=== PATIENT | male | born 1975 | race Hispanic/Latino ===

== ENCOUNTER 2020-12-05 10:08 | Emergency (ER) | payer OTHER, SELFPAY ==
[2020-12-05 10:21] VITALS: BP 129/59; PULSE 73; RESP 14; TEMP 36.8; O2SAT 98
--- NOTE | 2020-12-05 10:46 | DI.RAD.S_ITS ---
PROCEDURE: XR KNEE RT 3V INDICATIONS: knee pain after being kicked by cow TECHNIQUE: 3 views of the knee were acquired. COMPARISON: None. FINDINGS: Bones: No fractures or dislocations. No suspicious bony lesions. Soft tissues: No joint effusion. No suspicious soft tissue calcifications. IMPRESSION: No fracture. No osseous lesion. If symptoms and/or clinical suspicion for pathology persists, further assessment with repeat radiographs (7-10 days) or advanced imaging (e.g. CT, MRI or bone scan) should be considered. Dictated by: Tata Miller MD, PhD on 12/05/2020 at 11:14 Approved by: Tata Miller MD, PhD on 12/05/2020 at 11:15
--- NOTE | 2020-12-05 10:53 | ED.LOWEXIN ---
HPI - Extremity Injury (Lower) <MALIA Demarco-BC - Last Filed: 12/05/20 13:18> General Chief Complaint: Extremity Injury, Upper Stated Complaint: Rt Knee Pain Time Seen by Provider: 12/05/20 10:18 Source: patient Mode of arrival: Ambulatory Limitations: language barrier History of Present Illness HPI Narrative: The patient is a 45-year-old male current some day smoker who denies pertinent medical history who presents with a chief complaint of right knee pain. He states that he was kicked by a cow yesterday on the lateral aspect of his right knee. The cow kicked him and he felt sudden pain on the medial aspect of his right knee. He states that that point he had all of his weight on his right leg as his left leg was up on a fence. He complains of pain, instability, is concerned about possible fracture. He has used ibuprofen and is walking with the assist of a crutch. The patient is [place]ian-speaking, does understand some Icelandic, does present with a friend for translation. He was offered use of an official cooling pan tender, but declines as he would rather use his friend for interpretation. He denies any previous injuries to his knee. Related Data Previous Rx's Medication Instructions Recorded ketorolac 10 mg PO TID PRN #14 tab 12/05/20 lidocaine 1 patch TOPICAL DAILY PRN #15 ea 12/05/20 Allergies Allergy/AdvReac Type Severity Reaction Status Date / Time No Known Drug Allergies Allergy Verified 12/05/20 10:29 Review of Systems <EARLENE Demarco - Last Filed: 12/05/20 13:18> Review of Systems Narrative: GENERAL: Denies chills, fatigue, malaise, fever, sweats. HEENT: Denies sinus pain, ear pain, sore throat, difficulty swallowing, dizziness. RESPIRATORY: Denies dyspnea, cough, wheezing, hemoptysis, sputum. CARDIOVASCULAR: Denies chest pain, palpitations, orthopnea, edema, GASTROINTESTINAL: Denies nausea, vomiting, abdominal pain, diarrhea, constipation, melena. : Denies dysuria, frequency, incontinence, hematuria, urinary retention. MUSCULOSKELETAL: See HPI SKIN: Denies rash, skin lesions, or other NEUROLOGIC: Denies weakness, headache, numbness, change in speech, confusion, seizures, incoordination. PSYCHIATRIC: No concerning psychosocial issues. 12 point review of systems is negative except for those stated above Patient History <EARLENE Demarco - Last Filed: 12/05/20 13:18> Social History Smoking Status: Current some day smoker Smoking Status: Current some day smoker tobacco type: cigarettes alcohol intake frequency: a few times a month Alcohol type: beer Substance Use Type: does not use Exam <EARLENE Demarco - Last Filed: 12/05/20 13:18> Narrative Exam Narrative: GENERAL: This is a well-nourished, well-developed patient, in no acute distress HEAD: Atraumatic. Normocephalic. No temporal or scalp tenderness. EYES: Pupils equal round and reactive. Extraocular motions intact. No scleral icterus. No injection or drainage. ENT: Nose without bleeding, purulent drainage or septal hematoma. Wearing a mask. Airway patent. NECK: Trachea midline. No JVD or lymphadenopathy. Supple, nontender, no meningeal signs. CARDIOVASCULAR: Regular rate and rhythm RESPIRATORY: No cough. No increased respiratory effort. No accessory muscle use. EXTREMITIES: Pain to palpation noted medial right knee, slight swelling noted. Decreased flexion and extension of right knee, able to lift right leg off of stretcher, pain on varus and valgus. Positive pedal pulses right foot. BACK: Nontender without deformity or crepitance. No flank tenderness. NEURO: AOx3. SKIN: No rash or erythema on visible skin Initial Vital Signs Initial Vital Signs: Vital Signs Temperature 98.2 F 12/05/20 10:21 Pulse Rate 73 12/05/20 10:21 Respiratory Rate 14 12/05/20 10:21 Blood Pressure 129/59 L 12/05/20 10:21 Pulse Oximetry 98 12/05/20 10:21 <Fercho Jordan MD - Last Filed: 12/05/20 18:45> Initial Vital Signs Initial Vital Signs: Vital Signs Temperature 98.2 F 12/05/20 10:21 Pulse Rate 73 12/05/20 10:21 Respiratory Rate 14 12/05/20 10:21 Blood Pressure 129/59 L 12/05/20 10:21 Pulse Oximetry 98 12/05/20 10:21 Scores <EARLENE Demarco - Last Filed: 12/05/20 13:18> GCS Radha coma scale eye opening: Spontaneous [place] coma scale verbal response: Orientated [place] coma scale motor response: Obey commands [place] coma scale total score: 15 Course <EARLENE Demarco - Last Filed: 12/05/20 13:18> Orders Ordered: ED Orders 12/05/20 10:46 XR knee RT 3V Stat Discontinued Medications Ketorolac Tromethamine (Ketorolac 60 Mg/2 Ml Vial) 30 mg IM NOW ONE Stop: 12/05/20 11:30 Last Admin: 12/05/20 11:46 Dose: 30 mg Documented by: MELO Lidocaine (Lidocaine Patch 1 Each Adh..Patch) 1 each TOP NOW ONE Stop: 12/05/20 11:30 Last Admin: 12/05/20 11:46 Dose: 1 each Documented by: MELO Vital Signs Vital signs: Vital Signs - 8 hr 12/05/20 12:16 Pulse Rate 64 Respiratory Rate 14 Blood Pressure 128/80 Pulse Oximetry 97 <Fercho Jordan MD - Last Filed: 12/05/20 18:45> Orders Ordered: ED Orders 12/05/20 10:46 XR knee RT 3V Stat Discontinued Medications Ketorolac Tromethamine (Ketorolac 60 Mg/2 Ml Vial) 30 mg IM NOW ONE Stop: 12/05/20 11:30 Last Admin: 12/05/20 11:46 Dose: 30 mg Documented by: MELO Lidocaine (Lidocaine Patch 1 Each Adh..Patch) 1 each TOP NOW ONE Stop: 12/05/20 11:30 Last Admin: 12/05/20 11:46 Dose: 1 each Documented by: MELO Vital Signs Vital signs: Vital Signs - 8 hr 12/05/20 12:16 Pulse Rate 64 Respiratory Rate 14 Blood Pressure 128/80 Pulse Oximetry 97 MDM - Extremity Injury (Lower) <EARLENE Demarco - Last Filed: 12/05/20 13:18> Imaging Data Extremity x-ray #1: Radiologist's Impression: Replaced by [facility] [address] [place] [id number] ReportSigned Patient: Wil Londono LMR#: [id number]: 1975Acct:[id number]/Sex: 45 / MDate of Service: 12/05/20Loc: EDAccession Number: [id number] Procedure: XR knee RT 3V Ordering Provider: Joanna DesirP- PROCEDURE: XR KNEE RT 3V INDICATIONS: knee pain after being kicked by cow TECHNIQUE: 3 views of the knee were acquired. COMPARISON: None. FINDINGS: Bones: No fractures or dislocations. No suspicious bony lesions. Soft tissues: No joint effusion. No suspicious soft tissue calcifications. IMPRESSION: No fracture. No osseous lesion. If symptoms and/or clinical suspicion for pathology persists, further assessment with repeat radiographs (7-10 days) or advanced imaging (e.g. CT, MRI or bone scan) should be considered. Dictated by: Tata Miller MD, PhD on 12/05/2020 at 11:14 Approved by: Tata Miller MD, PhD on 12/05/2020 at 11:15 [facility] Narrative Medical decision making narrative: The patient is a 45-year-old male who presents with a chief complaint of right knee pain after being kicked by a cow yesterday. He is neurovascularly intact throughout his stay in the ER. X-ray shows no acute findings. However patient's exam is concerning for soft tissue injury. He is able to ambulate on it, which is reassuring, is able to lift entire leg off stretcher which is also reassuring. However I encouraged him to follow up with a [employer] provider. He feels much improved after lidocaine patches in Toradol, so prescriptions were provided. 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 Discussed that x-ray does not rule out soft tissue injury. Patient and friend have no questions or concerns upon discharge states understanding return precautions as well as follow-up care. Discharge Plan Departure Patient Disposition: Home Clinical Impression: Right knee sprain Qualifiers: Encounter type: initial encounter Involved ligament of knee: unspecified ligament Qualified Code(s): S83.91XA - Sprain of unspecified site of right knee, initial encounter Instructions: How to Use Crutches, DI for Knee Sprain, How To Perform RICE (Rest, Ice, Compress, Elevate) Activity Restrictions/Additional Instructions: Thank you for trusting us with your care today As I discussed, your x-ray shows no acute fracture. This does not rule out a soft tissue injury such as a ligament or tendon injury. It is important that you follow up with primary care provider, especially if worsening or no improvement. There can be fractures that did not show up on initial x-ray. I have given you a prescription of Toradol. This is an NSAID. Do not combine it with other NSAIDs such as Aleve or ibuprofen. I suggest taking it with some food, as it can irritate your stomach. Please also use rest ice compression elevation. Please follow-up with a [employer] provider. You will need further evaluation. I have also given you contact information to the [facility] health human resources admin, who can help you identify primary care provider Please come back to the emergency department for any acute concerns I have given you a note for several days off of work. I would like you to follow-up with somebody in the next few days safe thing get re-evaluation before you go back to work. Prescriptions: New lidocaine 5 % adhesive patch,medicated 1 patch topical DAILY PRN (Reason: pain) Qty: 15 RF: 0 ketorolac 10 mg tablet 10 mg PO TID PRN (Reason: pain) Qty: 14 RF: 0 Referrals: [facility] [Outside] Stand Alone Forms: Work Release Note <Fercho Jordan MD - Last Filed: 12/05/20 18:45> Cosign ED Attending Cosignature Attestation: I was immediately available in the department for consultation. This documentation has been reviewed and I agree with assessment and plan. Supervised by Fercho Jordan MD
[2020-12-05] MEDS: LIDOCAINE PATCH 1 EACH ADH..PATCH TOP (11:46)
[2020-12-05] MEDS: KETOROLAC 60 MG/2 ML VIAL 30 MG IM (11:46)
[2020-12-05 12:16] VITALS: BP 128/80; PULSE 64; RESP 14; O2SAT 97
== END 2020-12-05 13:16 | disposition home or self-care (01) ==
PROVIDERS: Emergency Provider Nurse Practitioner Family
DX: S83.91XA Sprain of unspecified site of right knee, initial encounter (principal); W22.8XXA Striking against or struck by other objects, initial encounter; Y99.0 Civilian activity done for income or pay
CPT/HCPCS: 73562; 96372; 99281; 99283; J1885

== ENCOUNTER → 2021-07-06 08:54 | Outpatient (CLI) | payer OTHER, SELFPAY ==
--- NOTE | 2021-07-06 | DI.MRI.S_ITS ---
PROCEDURE: MR KNEE RT WO CON INDICATIONS: Acute pain due to trauma TECHNIQUE: Noncontrast sagittal PD fast spin echo and T2 fast spin echo with fat saturation, sagittal 3-D FLASH with fat saturation; coronal T1 spin echo and PD fast spin echo with fat saturation, and axial PD fast spin echo with fat saturation through the knee. COMPARISON: [facility], CR, XR KNEE RT 3V, 12/05/2020, 10:48. FINDINGS: Image quality: Excellent. Menisci: Intermediate intrasubstance signal is seen throughout the body and posterior horn of the medial meniscus without extension to articular surface, consistent with intrasubstance degeneration. There is also mild intrasubstance degeneration in the lateral meniscus without a discrete tear. Cruciate ligaments: The anterior and posterior cruciate ligaments appear intact. Medial structures: There is mild edema deep to the proximal medial collateral ligament, which may indicate a subacute to chronic low-grade sprain. The semimembranosus tendon insertions and meniscocapsular junction appear intact. Visualized portions of the pes anserinus tendons appear normal. No abnormal bursal fluid. Lateral structures: The lateral collateral ligament, long and short heads of the biceps femoris tendon appear intact. The popliteus tendon appears intact. No signs of posterolateral corner injury. Iliotibial band appears normal. Anterior structures: The quadriceps and patellar tendons appear intact. Patellar alignment is normal. No femoral trochlear dysplasia or ventral trochlear prominence. No edema in the infrapatellar fat pad. Bones and cartilage: No bone marrow contusions or fractures. The cartilage of the medial and lateral femorotibial compartments appears normal in thickness. Partial-thickness cartilage fissuring is seen at the median ridge/lateral facet of the patella. Joint space: There is a small joint effusion. A trace medial popliteal cyst is present. A mildly prominent suprapatellar plica is present without entrapped fluid. IMPRESSION: 1. Subacute to chronic low-grade sprain of the proximal medial collateral ligament. 2. Intrasubstance degeneration of the medial and lateral menisci without a discrete meniscal tear. 3. Shallow cartilage fissuring in the lateral patellar facet. 4. Small joint effusion. Dictated by: Gaston Wilkinson M.D. on 07/06/2021 at 11:23 Approved by: Gaston Wilkinson M.D. on 07/06/2021 at 11:34
== END ==
PROVIDERS: PCP Orthopaedic Surgery; Referring Provider Orthopaedic Surgery; Visit Provider Orthopaedic Surgery
DX: G89.11 Acute pain due to trauma (principal); S83.411A Sprain of medial collateral ligament of right knee, initial encounter; M25.461 Effusion, right knee
CPT/HCPCS: 73721

== ENCOUNTER 2023-04-15 09:46 | Emergency (ER) | payer SELFPAY ==
[2023-04-15 09:50] VITALS: BP 148/76; PULSE 66; RESP 16; TEMP 36.9; O2SAT 98; BMI 32.5
--- NOTE | 2023-04-15 10:41 | ED.BACK ---
HPI - Back Pain/Injury <ALEXANDR Perkins - Last Filed: 04/15/23 10:56> General Chief Complaint: Back Pain/Injury Stated Complaint: lower Back pain T-4 Time Seen by Provider: 04/15/23 10:05 History of Present Illness HPI Narrative: 47-year-old male, some day smoker, presents to the walk-in clinic with left lower back pain x4 days. Patient states that he was doing some yd work when the pain began but worsened yesterday after pulling weeds at home. Patient took a naproxen last evening that took the edge off and allowed him to get some sleep. Patient states that he can get into a position of comfort but any movement causes severe spasms. Patient denies any loss of control of bowel or bladder or current numbness and tingling. Related Data Previous Rx's Medication Instructions Recorded ketorolac 10 mg tablet 10 mg PO TID PRN pain #14 tabs 12/05/20 lidocaine 5 % topical patch 1 patch topical DAILY PRN pain #15 12/05/20 ea methocarbamol 750 mg tablet 750 mg PO TID #20 tabs 04/15/23 naproxen 500 mg tablet 500 mg PO BID #20 tabs 04/15/23 Allergies Allergy/AdvReac Type Severity Reaction Status Date / Time No Known Drug Allergies Allergy Verified 12/05/20 10:29 Review of Systems <ALEXANDR Perkins - Last Filed: 04/15/23 10:56> Review of Systems Narrative: Narrative: See HPI. GENERAL: Denies chills, fatigue, fever, sweats. HEENT: Denies sinus pain, ear pain, sore throat, difficulty swallowing, dizziness. RESPIRATORY: Denies dyspnea, cough, wheezing, sputum. CARDIOVASCULAR: Denies chest pain, palpitations, edema. GASTROINTESTINAL: Denies nausea, vomiting, abdominal pain, diarrhea, constipation. : Denies dysuria, frequency, incontinence, hematuria, urinary retention, flank pain, loss of control of bowel or bladder. MSK: Denies weakness. Endorses left lower back pain. SKIN: Denies rash, skin lesions, or pruritis. NEUROLOGIC: Denies weakness, dizziness, headache, numbness, confusion. PSYCHIATRIC: No concerning psychosocial issues. Patient History <ALEXANDR Perkins - Last Filed: 04/15/23 10:56> Social History Smoking Status: Current some day smoker Smoking Status: Current some day smoker tobacco type: cigarettes alcohol intake frequency: a few times a month Alcohol type: beer Substance Use Type: does not use Exam <ALEXANDR Perkins - Last Filed: 04/15/23 10:56> Narrative Exam Narrative: Exam Narrative: GENERAL: This is a well-nourished, well-developed patient, in no acute distress. HEAD: Atraumatic. Normocephalic. EYES: Pupils equal round and reactive. Extraocular motions intact. No scleral icterus, injection or drainage. ENT: Nose without bleeding, purulent drainage. Airway patent. NECK: Trachea midline. No JVD or lymphadenopathy. Nontender. CARDIOVASCULAR: Regular rate and rhythm without murmurs, peripheral pulses intact, cap refill <2 sec. RESPIRATORY: Breath sounds equal and clear bilaterally. No wheezes, rales, or rhonchi. No cough. No increased respiratory effort. No accessory muscle use. MSK: Moves all extremities. Normal range of motion, no clubbing or edema. Neurovascularly intact. NEURO: A&O x 3. SKIN: Warm, dry, no rashes or lesions noted. 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 There is no asymmetry, swelling, bruising or wound. There is no paraspinal tenderness or CVA tenderness. SI joints nontender. No pain over spinous processes. No symptoms of cauda equina such as saddle anesthesia. Sensation is grossly intact. ROM is limited due to pain. SLE is negative bilaterally. Reflexes 2-3 at patella and achilles bilaterally. Resistive strengths are within normal limits Gait is normal. Heel toe balance is intact. Initial Vital Signs Initial Vital Signs: Vital Signs Temperature 98.4 F 04/15/23 09:50 Pulse Rate 66 04/15/23 09:50 Respiratory Rate 16 04/15/23 09:50 Blood Pressure 148/76 H 04/15/23 09:50 Pulse Oximetry 98 04/15/23 09:50 Oxygen Delivery Method Room Air 04/15/23 09:50 Reviewed <Macario Schuster DO - Last Filed: 04/15/23 11:00> Initial Vital Signs Initial Vital Signs: Vital Signs Temperature 98.4 F 04/15/23 09:50 Pulse Rate 66 04/15/23 09:50 Respiratory Rate 16 04/15/23 09:50 Blood Pressure 148/76 H 04/15/23 09:50 Pulse Oximetry 98 04/15/23 09:50 Oxygen Delivery Method Room Air 04/15/23 09:50 Course <Macario SmithALEXANDR - Last Filed: 04/15/23 10:56> Vital Signs Vital signs: Vital Signs - 8 hr 04/15/23 09:50 Temperature 98.4 F Pulse Rate 66 Respiratory Rate 16 Blood Pressure 148/76 H Pulse Oximetry 98 Oxygen Delivery Method Room Air <Macario SchusterDO - Last Filed: 04/15/23 11:00> Vital Signs Vital signs: Vital Signs - 8 hr 04/15/23 09:50 Temperature 98.4 F Pulse Rate 66 Respiratory Rate 16 Blood Pressure 148/76 H Pulse Oximetry 98 Oxygen Delivery Method Room Air MDM - Back Pain/Injury <ALEXANDR Perkins - Last Filed: 04/15/23 10:56> Differential Diagnosis Differential diagnosis: Likely lumbar radiculopathy, sciatica and strain of lumbar region MDM Narrative Medical decision making narrative: 47-year-old male with low back pain x4 days. Assessment was encouraging and consistent with a low back muscle strain. Discussed plan of care with patient included supportive care that includes hot or cold compresses to the affected site and gentle range of motion stretching exercises. Will place patient on naproxen and Robaxin. Discussed plan of care and return precautions with patient and spouse, who verbalized understanding and was agreeable with course of action. Consideration included that injury was non-traumatic, patient is not a IV drug user, no fever, neurovascular intact, no weakness, no signs of epidural abscess or saddle anesthesia. Discharge Plan Departure Patient Disposition: Home Clinical Impression: Strain of lumbar region Instructions: DI for Back Strain or Sprain Activity Restrictions/Additional Instructions: *You have been diagnosed with low back muscle strain. As we discussed, please engage in gentle range of motion stretching exercises, apply hot or cold compresses to the affected site and take the prescribed medications as directed. For worsening symptoms that includes intolerable pain, loss of control of bowel or bladder, please return to the emergency room immediately. If symptoms persist, please follow-up with your family doctor as needed. *What to do: *Please continue to take your regular medications as directed. [ x] New medication prescriptions sent to your pharmacy: [[facility] in [place]] [ ] New medication written as a paper prescription [ ] No new medications given *Please follow up with your primary care provider in 2-3 days, call for an appointment. Let them know you were seen in the Emergency Department and that we ask that you be seen in follow up. We will electronically transmit a record of today's note if your PCP is in our system *If you do not have a primary care provider please contact the [facility] Resource line at [phone]. They will ask some questions about your medical history and help get you set up with a doctor in the community. ? Return to ER if you should have any new, worsening or concerning symptoms, such as worsening pain, severe headache, confusion, chest pain, difficulty breathing, fever greater than 101 F, shaking chills, persistent vomiting to the point that you cannot drink fluids, or other new or worsening symptoms. Prescriptions: New methocarbamol 750 mg tablet 750 mg PO TID Qty: 20 0RF Rx Instructions: take 1 tablet 3 times a day x 3 days then as needed for back spasms naproxen 500 mg tablet 500 mg PO BID Qty: 20 0RF Rx Instructions: Take 1 tablet every 12 hours x 3-5 days, then as needed. No Action lidocaine 5 % adhesive patch,medicated 1 patch topical DAILY PRN (Reason: pain) Qty: 15 0RF Rx Instructions: leave on most painful area for up to 12 hrs ketorolac 10 mg tablet 10 mg PO TID PRN (Reason: pain) Qty: 14 0RF Referrals: Lucho Ryan MD [Primary Care Provider] - Stand Alone Forms: Patient Portal/API <Macario Schuster, - Last Filed: 04/15/23 11:00> Cosign [facility]: Dr Schuster Co-Sign Statement: I was available for consultation during this patient's emergency department visit. This chart is signed by myself for administrative purposes only. I did not have direct contact with this patient during this visit. They were seen independently by the APC.
== END 2023-04-15 10:58 | disposition home or self-care (01) ==
PROVIDERS: Emergency Provider Registered Nurse; PCP Orthopaedic Surgery
DX: S39.012A Strain of muscle, fascia and tendon of lower back, initial encounter (principal); Y93.H2 Activity, gardening and landscaping
CPT/HCPCS: 99281

== ENCOUNTER 2024-11-28 15:42 | Emergency (ER) | payer SELFPAY ==
[2024-11-28 15:46] VITALS: BP 131/80; PULSE 77; RESP 16; TEMP 36.4; O2SAT 96; BMI 39.1
--- NOTE | 2024-11-28 16:02 | ED.EAR ---
HPI - Ear Problem <Alejandra Murphy PA-C - Last Filed: 11/28/24 17:31> General Chief complaint: Ear Stated complaint: right ear warm, red, painful Time Seen by Provider: 11/28/24 16:02 History of Present Illness HPI Narrative: Mr. Londono is a very pleasant 49-year-old male with a past medical history of psoriasis, prediabetes, hypertension who presents to the emergency department for external right ear pain that started around 6:00 p.m. last night. Patient states he was helping a family member move yesterday and at night noticed that his right ear was very red hot and tender. He is taken Tylenol without improvement in the symptoms. He denies any drainage from the ear or inner ear pain. He denies any known direct trauma to the ear or cartilage ear piercing. He denies fevers, chills, nausea, vomiting, sore throat, any other symptoms. Related Data Previous Rx's Medication Instructions Recorded ketorolac 10 mg tablet 10 mg PO TID PRN pain #14 tabs 12/05/20 lidocaine 5 % topical patch 1 patch topical DAILY PRN pain #15 12/05/20 ea methocarbamol 750 mg tablet 750 mg PO TID #20 tabs 04/15/23 naproxen 500 mg tablet 500 mg PO BID #20 tabs 04/15/23 levofloxacin 750 mg tablet 750 mg PO Q24H 10 days #10 tabs 11/28/24 ondansetron 4 mg disintegrating 4 mg PO Q8H PRN nausea and 11/28/24 tablet vomiting #14 tabs Allergies Allergy/AdvReac Type Severity Reaction Status Date / Time No Known Drug Allergies Allergy Verified 12/05/20 10:29 Review of Systems <Alejandra Murphy PA-C - Last Filed: 11/28/24 17:31> Review of Systems ROS Unobtainable: All systems reviewed & are unremarkable except as noted in HPI and below Patient History <Alejandra Murphy PA-C - Last Filed: 11/28/24 17:31> Social History Smoking Status: Current some day smoker Smoking Status: Current some day smoker tobacco type: cigarettes alcohol intake frequency: a few times a month Alcohol type: beer Exam <Alejandra Murphy PA-C - Last Filed: 11/28/24 17:31> Narrative Exam Narrative: GENERAL: 49 year old patient appears stated age. Well-developed patient, in no acute distress. HEAD: Atraumatic. Normocephalic. Significant scalp psoriasis. EYES: Extraocular motions intact. No scleral icterus. No injection or drainage. ENT: Right ear pinna extremely erythematous, tender, edematous. Erythema spares the earlobe. There is no erythema onto the face or the mastoid area. No mastoid tenderness. There is dry flaking skin consistent with the patient's psoriasis and bilateral canals but no drainage or erythema of bilateral tympanic membranes. Nose without bleeding, purulent drainage. Throat without erythema, tonsillar hypertrophy or exudate. Airway patent. NECK: Trachea midline. Cervical ROM intact. No pain with range of motion of neck, no tenderness to palpation. CARDIOVASCULAR: Regular rate RESPIRATORY: ?Nonlabored respirations. ?Speaking in clear, full sentences. ? NEURO: AOx3. ?Clear speech. ?Moves all 4 extremities appropriately. Initial Vital Signs Initial Vital Signs: Vital Signs Temperature 97.6 F 11/28/24 15:46 Pulse Rate 77 11/28/24 15:46 Respiratory Rate 16 11/28/24 15:46 Blood Pressure 131/80 11/28/24 15:46 Pulse Oximetry 96 11/28/24 15:46 Oxygen Delivery Method Room Air 11/28/24 15:46 <Yesenia Isaacs DO - Last Filed: 11/29/24 08:46> Initial Vital Signs Initial Vital Signs: Vital Signs Temperature 97.6 F 11/28/24 15:46 Pulse Rate 77 11/28/24 15:46 Respiratory Rate 16 11/28/24 15:46 Blood Pressure 131/80 11/28/24 15:46 Pulse Oximetry 96 11/28/24 15:46 Oxygen Delivery Method Room Air 11/28/24 15:46 Course <VALENTE Vanessa Last Filed: 11/28/24 17:31> Orders Ordered: Discontinued Medications Ketorolac Tromethamine (Ketorolac 30 Mg/Ml Vial) 30 mg IM NOW ONE Stop: 11/28/24 16:14 Last Admin: 11/28/24 16:28 Dose: 30 mg Documented By: ANAMARIA Levofloxacin (Levofloxacin 250 Mg Tablet) 750 mg PO NOW ONE Stop: 11/28/24 16:14 Last Admin: 11/28/24 16:29 Dose: 750 mg Documented By: ANAMARIA Ondansetron HCl (Ondansetron 4 Mg Odt) 4 mg SL NOW ONE Stop: 11/28/24 16:52 Last Admin: 11/28/24 16:54 Dose: 4 mg Documented By: ANAMARIA Vital Signs Vital signs: Vital Signs - 8 hr 11/28/24 15:46 11/28/24 16:34 Temperature 97.6 F 98.5 F Pulse Rate 77 73 Respiratory Rate 16 16 Blood Pressure 131/80 114/58 L Pulse Oximetry 96 96 Oxygen Delivery Method Room Air Room Air <Yesenia Isaacs DO - Last Filed: 11/29/24 08:46> Orders Ordered: Discontinued Medications Ketorolac Tromethamine (Ketorolac 30 Mg/Ml Vial) 30 mg IM NOW ONE Stop: 11/28/24 16:14 Last Admin: 11/28/24 16:28 Dose: 30 mg Documented By: ANAMARIA Levofloxacin (Levofloxacin 250 Mg Tablet) 750 mg PO NOW ONE Stop: 11/28/24 16:14 Last Admin: 11/28/24 16:29 Dose: 750 mg Documented By: ANAMARIA Ondansetron HCl (Ondansetron 4 Mg Odt) 4 mg SL NOW ONE Stop: 11/28/24 16:52 Last Admin: 11/28/24 16:54 Dose: 4 mg Documented By: ANAMARIA Vital Signs Vital signs: Vital Signs - 8 hr 11/28/24 15:46 11/28/24 16:34 Temperature 97.6 F 98.5 F Pulse Rate 77 73 Respiratory Rate 16 16 Blood Pressure 131/80 114/58 L Pulse Oximetry 96 96 Oxygen Delivery Method Room Air Room Air Medical Decision Making <Alejandra Murphy PA-C - Last Filed: 11/28/24 17:31> Medical Records Medical records reviewed: Yes I reviewed the patient's medical records. MDM Narrative Medical decision making narrative: 49-year-old male with a past medical history of psoriasis, prediabetes, hypertension who presents to the emergency department for external right ear pain that started around 6:00 p.m. last night. Differential diagnosis includes but is not limited to perichondritis, erysipelas, cellulitis, auricle hematoma, acute otitis externa, etc. On exam patient is in no acute distress, nontoxic appearing, vital signs within normal limits. He is erythema, increased warmth, edema of the right ear auricle/pinna sparing the earlobe. Physical exam most consistent with perichondritis. Patient had no direct trauma to the ear however he does have flaking psoriasis that could have contributed to infection. We will treat pain with Toradol and will need to cover for Pseudomonas levofloxacin 750 mg orally once daily. Patient had an episode of vomiting shortly after receiving the levofloxacin. States that he had an empty stomach, he was provided with Zofran and then had resolution of symptoms, tolerating p.o.. This time I encouraged that he goes home and eat a small meal before taking repeat dose of levofloxacin from his pharmacy. Discussed with the patient that if he is unable to tolerate the antibiotic he needs to return to the emergency department for further evaluation. Pain improved significantly with Toradol. Discussed black box warning of fluoroquinolones with the patient. Both him and his verbalized understanding of all information agreeable with the plan. We did discuss very strict ED return precautions that if he has no improvement or worsening of symptoms he needs to return immediately. Discharge Plan Departure Patient Disposition: Home Clinical Impression: Perichondritis and chondritis of right pinna Instructions: DI for Ear Pain-Adult Activity Restrictions/Additional Instructions: Dear Mr. Londono, Today you were evaluated for right ear redness, pain and swelling. You were diagnosed with an infection of the cartilage of the right ear. You have been prescribed an antibiotic to take once daily for the next 10 days however he did receive the 1st dose already. I would like you to take ibuprofen and Tylenol to help with the pain. If you have no improvement in the ear pain or redness within the next 48 hours he needs to return to the emergency department immediately. If your symptoms get suddenly worse you should also return immediately. Please take Ibuprofen (Motrin/Advil) or Acetaminophen (Tylenol) for pain. These are available over the counter. You may take Ibuprofen 600 mg every 8 hours with food for pain. You may also take Acetaminophen 650 mg every 4-6 hours for pain. Do not exceed 3000 mg of Tylenol a day as this can cause liver damage. Do not drink alcohol with either of these medications. Please be aware that levofloxacin is in a class of antibiotics called fluoroquinolones. This class of antibiotics has a increased risk of tendon rupture or tendon injury so you should not perform any strenuous activity or weightlifting while taking this antibiotic and for at least 1 week after. Please follow up with your primary care doctor for return to normal activity. Please follow up with your primary care doctor within the next 2-3 days for ER follow-up. (If you do not have a PCP you can call [phone]. ?to schedule an appointment with an [facility] Primary Care Provider) IF YOU DEVELOP ANY NEW OR WORSENING SYMPTOMS, RETURN TO THE ER! Please read the attached instructions, they highlight more specific treatments and interventions for you at home. Thank you for letting me participate in your care, Alejandra Murphy PA-C Prescriptions: New levofloxacin 750 mg tablet 750 mg PO Q24H 10 Days Qty: 10 0RF ondansetron 4 mg tablet,disintegrating 4 mg PO Q8H PRN (Reason: nausea and vomiting) Qty: 14 0RF No Action methocarbamol 750 mg tablet 750 mg PO TID Qty: 20 0RF Rx Instructions: take 1 tablet 3 times a day x 3 days then as needed for back spasms naproxen 500 mg tablet 500 mg PO BID Qty: 20 0RF Rx Instructions: Take 1 tablet every 12 hours x 3-5 days, then as needed. lidocaine 5 % adhesive patch,medicated 1 patch topical DAILY PRN (Reason: pain) Qty: 15 0RF Rx Instructions: leave on most painful area for up to 12 hrs ketorolac 10 mg tablet 10 mg PO TID PRN (Reason: pain) Qty: 14 0RF Referrals: Lucho Ryan MD [Primary Care Provider] - Stand Alone Forms: Patient Portal/API/Survey ED Sign-out <Yesenia Isaacs DO - Last Filed: 11/29/24 08:46> Cosign ED Attending Cosignature Attestation: I was available for consultation.
[2024-11-28] MEDS: KETOROLAC 30 MG/ML VIAL IM (16:28)
[2024-11-28] MEDS: levoFLOXacin 250 MG TABLET 750 MG PO (16:29)
[2024-11-28 16:34] VITALS: BP 114/58; PULSE 73; RESP 16; TEMP 36.9; O2SAT 96
--- NOTE | 2024-11-28 16:40 | PC.NURSE ---
PT vomited after given oral abx and IM Toradol. provider aware
[2024-11-28] MEDS: ONDANSETRON 4 MG ODT SL (16:54)
--- NOTE | 2024-11-28 17:25 | PC.NURSE ---
Pt pasted po challenge prior to departure.
[2024-11-28 17:33] VITALS: BP 122/60; PULSE 69; RESP 16; O2SAT 98
== END 2024-11-28 17:34 | disposition home or self-care (01) ==
PROVIDERS: Emergency Provider Physician Assistant; PCP Orthopaedic Surgery
DX: H61.001 Unspecified perichondritis of right external ear (principal); H61.031 Chondritis of right external ear
CPT/HCPCS: 96372; 99283; J1885

== ENCOUNTER 2025-09-16 23:03 | Emergency (ER) | payer SELFPAY ==
[2025-09-16 23:14] VITALS: BP 134/72; PULSE 72; RESP 18; TEMP 37; O2SAT 97; BMI 45.1
--- NOTE | 2025-09-17 00:01 | ED.MALEGU ---
HPI - Male Genitourinary General Chief complaint: Urogenital-Male Stated complaint: perineum px, red rectal bleeding ~2 hrs Time Seen by Provider: 09/16/25 23:09 Source: patient Mode of arrival: Wheelchair History of Present Illness HPI Narrative: 49-year-old gentleman was urinating this evening and felt an itch and scratch his penis and then it began to swell shortly after was not able to retract the foreskin. He is diabetic and goes to the [facility]. This has never happened to him before. Other than what is stated 14 point review of system is negative. Related Data Home Medications ?Medication ?Instructions ?Recorded ?Confirmed lisinopril 5 mg tablet 5 mg PO DAILY 09/16/25 09/16/25 metformin 500 mg tablet 500 mg PO BID 09/16/25 09/16/25 Allergies Allergy/AdvReac Type Severity Reaction Status Date / Time No Known Drug Allergies Allergy Verified 09/16/25 23:12 Review of Systems Review of Systems ROS Unobtainable: All systems reviewed & are unremarkable except as noted in HPI and below Patient History Smoking Status: Current every day smoker tobacco type: cigarettes alcohol intake frequency: a few times a month Alcohol type: beer Exam Narrative Exam Narrative: GENERAL: [49] year old patient appears stated age. Well-developed patient, in mild distress. HEAD: Atraumatic. Normocephalic. EYES: Pupils equal round and reactive. Extraocular motions intact. No scleral icterus. No injection or drainage. : Foreskin retracted with glans swollen BACK: Nontender without deformity or crepitance. No flank tenderness. NEURO: AOx3. SKIN: No rash or erythema of visible areas Initial Vital Signs Initial Vital Signs: Vital Signs Temperature 98.6 F 09/16/25 23:14 Pulse Rate 72 09/16/25 23:14 Respiratory Rate 18 09/16/25 23:14 Blood Pressure 134/72 09/16/25 23:14 Pulse Oximetry 97 09/16/25 23:14 Oxygen Delivery Method Room Air 09/16/25 23:14 Course Vital Signs Vital signs: Vital Signs - 8 hr 09/16/25 23:14 Temperature 98.6 F Pulse Rate 72 Respiratory Rate 18 Blood Pressure 134/72 Pulse Oximetry 97 Oxygen Delivery Method Room Air MDM - Male Genitourinary MDM Narrative Medical decision making narrative: All lab work, vital signs, nurse triage note, medication list, previous ER visits, and all imaging studies reviewed. Multiple attempts made to reduce paraphimosis with some success with decreased swelling round glands of penis and able to reduce foreskin [address] Case discussed with to attempt one more time and he will see patient tommorow at 745 am. Discharge Plan Departure Patient Disposition: Home Clinical Impression: Paraphimosis Instructions: DI for Paraphimosis Activity Restrictions/Additional Instructions: Return with new or worsening symptoms. Follow up with urologist at his office at 740am today. Prescriptions: No Action metformin 500 mg tablet 500 mg PO BID lisinopril 5 mg tablet 5 mg PO DAILY Referrals: Lucho Ryan MD [Primary Care Provider, Medical] Stand Alone Forms: Patient Portal/API
--- NOTE | 2025-09-17 00:19 | PC.NURSE ---
at bs with Dr. Gonzalez as certified athletic trainer for exam
[2025-09-17 00:46] VITALS: BP 128/77; PULSE 71; RESP 17; O2SAT 97
== END 2025-09-17 00:48 | disposition home or self-care (01) ==
PROVIDERS: Emergency Provider Family Medicine; PCP Orthopaedic Surgery
DX: N47.2 Paraphimosis (principal)
CPT/HCPCS: 99281